=== PATIENT | female | born 1955 | race Caucasian/White ===

== ENCOUNTER 2023-07-09 13:22 | Emergency (ER) | payer MEDICARE, BC, SELFPAY ==
[2023-07-09] VITALS (8 sets, daily range): BP systolic 129–185; BP diastolic 70–117; BMI 25.4
[2023-07-09] MEDS: NITROSTAT (SUBLINGUAL) 0.400000000000000022 MG SL ×3 (14:02→14:15)
[2023-07-09 14:04] LABS: % Basophils 0.4 % (0-2); % Eosinophils 1.3 % (0-6); % Immature Granulocytes 0.6 % (0-0.5); % Lymphocytes 12.2 % (20.5-51.1); % Neutrophils 79.5 % (42.2-75.2); Absolute Basophils 0.1 10^3/uL (0-0.2); Absolute Eosinophils 0.2 10^3/uL (0-0.7); Absolute Immature Granulocytes 0.1 10^3/uL (0-0.05); Absolute Lymphocytes 1.5 10^3/uL (1.2-3.4); Absolute Monocytes 0.7 10^3/uL (0.1-0.6); Absolute Neutrophils 9.5 10^3/uL (1.4-6.5); Hemoglobin 12.5 g/dL (12.0-16.0); Mean Corp Hgb Conc. 34.7 g/dL (33.0-37.0); Mean Corpuscular Hgb 31.9 pg (27.0-31.0); Mean Corpuscular Volume 91.8 fL (81.0-99.0); Mean Platelet Volume 9.1 fL (7.4-10.4); Nucleated Red Blood Cells % 0 %; Platelet Count 191 10^3/uL (130-400); Red Blood Cell Count 3.92 10^6/uL (4.20-5.40)
[2023-07-09] MEDS: ASPIRIN 325 MG PO (14:12)
--- NOTE | 2023-07-09 14:12 | EDRN ---
Portable CXR done at this time.
--- NOTE | 2023-07-09 14:15 | EDRN ---
1 NTG administered at 14:08 w/ pain 6-09/18 and HR 90 and BP 161/86; NTG #2 administered at 14:08 w/ pain unchanged BP 141/92 and pulse 91; NTG #3 administered at this time 14:15 w/ BP 133/86 and pulse 89. Pain increases w/ inhalation states pt.
[2023-07-09 14:25] LABS: ALT (SGPT) 15 U/L (0-35); AST (SGOT) 25 U/L (14-36); Albumin 3.7 g/dl (3.5-5.0); Alkaline Phosphatase 71 U/L (38-126); Blood Urea Nitrogen 25 mg/dl (7-17); Calcium 8.9 mg/dl (8.4-10.2); Carbon Dioxide 29 mmol/L (22-30); Chloride 104 mmol/L (98-107); Estimated Creatinine Clearance 65 ml/min; Glucose 116 mg/dl (70-99); Potassium 4.4 mmol/L (3.5-5.1); Sodium 135 mmol/L (135-145); Total Bilirubin 0.5 mg/dl (0.2-1.3); Total Protein 6.7 g/dl (6.3-8.2); eGFR > 60.00
[2023-07-09 14:36] LABS: Troponin I < 0.012 ng/ml
--- NOTE | 2023-07-09 16:46 | EDRN ---
Pt frequently OOB to BR. Pt states pain remains 6-7/10 in substernal area. Repeat troponin drawn and sent at this time.
[2023-07-09 17:17] LABS: Troponin I < 0.012 ng/ml
--- NOTE | 2023-07-09 17:44 | EDRN ---
Dr Freitas in to see pt at this time.
--- NOTE | 2023-07-09 17:47 | ED.GENMED ---
History of Present Illness
General
Chief Complaint: Chest Pain
Source: patient
Exam Limitations: none
Time Seen by Provider: 07/09/23 13:45
Travel History
Have you had any contact with someone who has COVID-19?: No
Do you have any symptoms of coronavirus? Fever > 100 degrees, chills, cough, shortness of breath, sore throat, loss of taste or smell, muscle aches, or headache?: No
History of Present Illness
History of Present Illness:
This is a 68-year-old female history of coronary disease who presents with chest discomfort. She states it started yesterday and lasted most of the day but felt little better at night. Today the symptoms came on and been there all day. She states
that the pain has persisted all day. Feels a little short of breath. Feels like the pressure is a little worse when she takes a deep breath. Patient also admits that it is somewhat similar to her previous event. The patient states also that she
has not been taking any Plavix or aspirin. 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 Patient Is Also Not on Metoprolol. No Diaphoresis. No Radiation of Pain
Past History
Past History
ED Past Medical History: CAD, GERD, HTN, [place], Psychiatric (Bipolar, Depression), Other (Rheumatoid Arthritis, Sciatic pain, Pituitary disorder, Psoriasis, ADHD, PNA, Esophageal problems) and Other (History of pneumonia, pituitary disorder, psoriasis,
rheumatoid arthritis, thyroid disease.)
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
Social History
Tobacco: Former smoker
Alcohol: None
Personal: Single
Living: alone
Employment: Not employed
Phy Exam
Physical Exam
Physical Exam:
CONSTITUTIONAL Patient alert and oriented to person, place and time. Well-appearing. Vital signs reviewed.
HEAD atraumatic, normocephalic.
EYES eyelids normal to inspection, Pupils equally round and reactive to light, Extraocular muscles intact, Conjunctiva normal, Sclera normal.
NECK normal range of motion, Trachea midline, no jugular venous distention.
RESPIRATORY CHEST No respiratory distress noted, Chest expansion equal, Bilateral breath sounds clear.
CARDIOVASCULAR regular rate and rhythm, Heart sounds normal.
ABDOMEN abdomen nontender, Bowel sounds normal. No distention.
BACK normal inspection, no obvious deformities
UPPER EXTREMITY range of motion normal, Motor strength normal, no cyanosis, no edema.
LOWER EXTREMITY range of motion normal, Motor strength normal, no cyanosis, no edema.
NEURO Speech normal, No focal motor deficits, Reinier coma scale 15, Memory normal, Cranial Nerves intact to screening exam.
SKIN skin warm, dry, and normal in color.
PSYCHIATRIC patient oriented to person place and time, Normal affect.
Scores
Heart Score for Chest Pain Patients
STEMI patient?: No
History: Moderately Suspicious
ECG: Nonspecific Repolarization
Age: >/= 65 years
Risk Factors: >/= 3 Risk Factors or History of CAD
Troponin: </= Normal Limit
Heart Score for Chest Pain Patients: 6
Heart Score Risk: 20.3% MACE over next 6 weeks
Course
Orders/Labs/Results
Orders:
Orders
07/09/23 13:24
ECG [Electrocardiogram (*1)] Urgent
Reason for Study: Chest Pain
07/09/23 13:25
EKG- Treatment ONCE
07/09/23 13:46
Cardiac Monitoring- Treatment ONCE
07/09/23 13:52
Nitroglycerin Sublingual [Nitrostat (Sublingual)] 0.4 mg .ROUTE .STK-MED ONE
07/09/23 13:58
Complete Blood Count/With Diff Urgent
Comprehensive Metabolic Panel Urgent
Troponin I Urgent
07/09/23 13:59
Aspirin 325 mg PO NOW STA
07/09/23 14:00
Nitroglycerin Sublingual [Nitrostat (Sublingual)] 0.4 mg SL [id number] PRN
CR Chest Portable - 1 View Urgent
Comment:
Reason For Exam: cp
Reason Study Needs to be Portable: Patient Unstable
07/09/23 14:01
Electrocardiogram (*1) Urgent
Reason for Study: Chest Pain
EKG- Treatment ONCE
07/09/23 14:07
Vital Signs- Treatment ONCE
Frequency: Once
07/09/23 15:50
Electrocardiogram (*1) Urgent
Reason for Study: Chest Pain
EKG- Treatment ONCE
07/09/23 16:43
Troponin I Urgent
Abnormal Lab Results
07/09/23
13:58
WBC 12.0 H 10^3/uL
(4.8-10.8)
RBC 3.92 L 10^6/uL
(4.20-5.40)
Hct 36.0 L %
(37.0-47.0)
MCH 31.9 H pg
(27.0-31.0)
Abs Immat Gran (auto) 0.1 H 10^3/uL
(0-0.05)
Absolute Neuts (auto) 9.5 H 10^3/uL
(1.4-6.5)
Absolute Monos (auto) 0.7 H 10^3/uL
(0.1-0.6)
Immature Gran % 0.6 H %
(0-0.5)
Neutrophils % 79.5 H %
(42.2-75.2)
Lymphocytes % 12.2 L %
(20.5-51.1)
BUN 25 H mg/dl
(7-17)
Glucose 116 H mg/dl
(70-99)
07/09/23 13:58
07/09/23 13:58
Vital Signs
Initial and Last Documented VS:
Initial Vital Signs
Temp Pulse Resp BP Pulse Ox
98.4 F 95 18 185/117 98
07/09/23 13:29 07/09/23 13:29 07/09/23 13:29 07/09/23 13:29 07/09/23 13:29
Last Documented Vital Signs
Temp Pulse Resp BP Pulse Ox
98.4 F 90 23 138/82 96
07/09/23 13:29 07/09/23 17:15 07/09/23 17:15 07/09/23 17:00 07/09/23 17:15
MDM/Problems Addressed
MDM/Problems Addressed:
History of coronary disease, chest pain, abnormal EKG, uncontrolled hypertension
Acute Exacerbation and/or Progression of Chronic Illness: HTN
*Radiology
Radiology exam reviewed: all reviewed NAD by ED Provider
*Pulse Oximetry
Patient hypoxic: no
*EKG
Interpreted by ED Provider?: Yes
Interpretation: abnormal
Rate: normal
Rhythm: sinus
[place]: normal axis
Ischemia: non-specific ST changes
*Office Analyst Interpretation
Rate: normal
Interpretation: normal
Rhythm: sinus
*Critical Care Note
Total Time (30-74mins, 75-104mins- exclusive of procedures): Not Applicable
Data Reviewed
Review of Other/Old Records Reveals: Records (2021 cath report reviewed)
Source: patient
Prescriptions/Medications Considered But Not Given:
Consider heparin but troponin negative
Patient Management
Discussion with other providers: College Professor (Case discussed with Dr. Castellano)
Escalation/DeEscalation of care consider admission/obs:
Case discussed Dr. Castellano. Will restart aspirin 81 mg. On previous cardiac catheterization the patient did have LAD disease as well. She has elected not to take her aspirin but after discussion she will restart aspirin 81 mg. Will also start
Toprol 25 mg. She will follow-up closely with cardiology. Repeat troponin negative. Patient does appear well. Okay for discharge
ED Attending Note
-
Portions of this chart may have been created with voice recognition software.� Occasional wrong word or��sound alike� substitutions may have occurred due to the inherent limitations of voice recognition software.
Discharge Plan
Departure
Patient Disposition: Home (Routine Discharge)
Date of Disposition: 07/09/23
Time of Disposition: 17:52
Patient with high blood pressure during this ER visit?: Yes
Discharge Problem:
Chest pain
Instructions: Chest Pain DCA Follow Up, BLOOD PRESSURE
Prescriptions:
New
metoprolol succinate [Toprol XL] 25 mg tablet extended release 24 hr
25 mg PO DAILY Qty: 30 0RF
No Action
celecoxib 200 MG capsule
200 mg PO BID
levothyroxine 150 MCG tablet
150 mcg PO DAILY
famotidine 40 MG tablet
40 mg PO BID
atorvastatin 80 MG tablet
80 mg PO QPM Qty: 30 5RF
quetiapine 100 mg Tablet
100 mg PO HS
dextroamphetamine-amphetamine 15 mg Tablet
15 mg PO BID@0800,1200
alprazolam 2 mg Tablet
2 mg PO HS
albuterol sulfate 90 mcg/actuation Hfa Aerosol Inhaler
1 puff INHALATION R BIDPRN PRN (Reason: sob)
sertraline 50 mg Tablet
100 mg PO DAILY
mometasone 0.1 % Cream
1 applic TOPICAL BIDPRN PRN (Reason: forehead)
fluticasone furoate-vilanterol [Breo Ellipta] 200-25 mcg/dose Blister With Device
1 inh INHALATION R DAILY
Referrals:
Yamil Russo MD [Family Provider] -
Activity Restrictions/Additional Instructions:
Please take 81 mg aspirin daily. Please see cardiology next 3 days for follow-up and reevaluation. Return to the for shortness of breath, worsening pain, palpitations or any other concerns.
Interventions
Interventions:
*Risk Screen - Suicide Last Done: 07/09/23 13:32
*General Assessment Last Done: 07/09/23 13:32
*Neglect/Abuse Screening Last Done: 07/09/23 13:32
ED- Fall Risk Assessment Last Done: 07/09/23 14:09
ED- Cardiac Assessment Last Done: 07/09/23 14:09
ED- Pulmonary Assessment Last Done: 07/09/23 14:09
Discharge Date and Time
Print Language: CITIZEN OF [place]
== END 2023-07-09 18:15 | disposition home or self-care (01) ==
LOC: EMR 13:22
PROVIDERS: EMERGENCY PHYSICIAN Emergency Medicine; FAMILY PHYSICIAN Family Medicine
DX: R07.89 Other chest pain (principal); I10 Essential (primary) hypertension; I25.10 Atherosclerotic heart disease of native coronary artery without angina pectoris; Z87.891 Personal history of nicotine dependence
CPT/HCPCS: 99285; 71045; 80053; 84484; 85025; 93005

== ENCOUNTER → 2023-08-13 13:04 | Outpatient (REF) | payer MEDICARE, BC, SELFPAY | LOC: RCS 13:04 | PROVIDERS: ATTENDING PHYSICIAN Nuclear Medicine Nuclear Cardiology; FAMILY PHYSICIAN Family Medicine | DX: E78.2 Mixed hyperlipidemia (principal); I25.10 Atherosclerotic heart disease of native coronary artery without angina pectoris; I34.0 Nonrheumatic mitral (valve) insufficiency | CPT/HCPCS: 93306 ==

== ENCOUNTER 2024-08-23 14:55 | Emergency (ER) | payer MEDICARE, BC, SELFPAY ==
[2024-08-23 15:02] VITALS: BP 133/99
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
[2024-08-23 15:22] VITALS: BMI 27.7
[2024-08-23 15:47] LABS: % Basophils 1.2 % (0-2); % Immature Granulocytes 0.4 % (0-0.5); % Lymphocytes 21.3 % (20.5-51.1); % Monocytes 3.6 % (1.7-9.3); % Neutrophils 71.5 % (42.2-75.2); Absolute Basophils 0.1 10^3/uL (0-0.2); Absolute Eosinophils 0.2 10^3/uL (0-0.7); Absolute Lymphocytes 1.6 10^3/uL (1.2-3.4); Absolute Monocytes 0.3 10^3/uL (0.1-0.6); Absolute Neutrophils 5.4 10^3/uL (1.4-6.5); Hematocrit 44.6 % (37.0-47.0); Hemoglobin 15.2 g/dL (12.0-16.0); Mean Corp Hgb Conc. 34.1 g/dL (33.0-37.0); Mean Corpuscular Hgb 31.4 pg (27.0-31.0); Mean Corpuscular Volume 92.1 fL (81.0-99.0); Mean Platelet Volume 9.4 fL (7.4-10.4); Nucleated Red Blood Cells % 0 %; Platelet Count 242 10^3/uL (130-400); Red Blood Cell Count 4.84 10^6/uL (4.20-5.40); Red Cell Dist. Width 13.8 % (11.5-14.5); White Blood Cell Count 7.5 10^3/uL (4.8-10.8)
[2024-08-23 16:05] LABS: ALT (SGPT) 16 U/L (0-35); AST (SGOT) 26 U/L (14-36); Acetaminophen < 10 ug/ml (10-30); Albumin 4.3 g/dl (3.5-5.0); Alkaline Phosphatase 70 U/L (38-126); Blood Urea Nitrogen 29 mg/dl (7-17); Calcium 9.6 mg/dl (8.4-10.2); Carbon Dioxide 26 mmol/L (22-30); Chloride 106 mmol/L (98-107); Estimated Creatinine Clearance 35 ml/min; Glucose 124 mg/dl (70-99); Potassium 4.5 mmol/L (3.5-5.1); Salicylate < 1.0 mg/dl (2.0-20.0); Sodium 139 mmol/L (135-145); Total Bilirubin 0.6 mg/dl (0.2-1.3); Total Protein 7.6 g/dl (6.3-8.2); eGFR 40.22
[2024-08-23 16:06] LABS: Alcohol None Detected
[2024-08-23 16:35] LABS: Amphetamines Positive (Negative); Barbiturates Negative (Negative)
[2024-08-23 16:36] LABS: Benzodiazepines Positive (Negative); Buprenorphine Negative (Negative); Cocaine Negative (Negative); Marijuana Positive (Negative); Methadone Negative (Negative); Methamphetamines Negative (Negative); Opiates Negative (Negative); Phencyclidine Negative (Negative); Tricyclic Antidepressants Positive (Negative)
[2024-08-23 16:57] LABS: Fentanyl, Urine Negative (Negative)
[2024-08-23] MEDS: PROTONIX 40 MG PO (17:33)
[2024-08-23] MEDS: PEPCID 40 MG PO (17:33)
[2024-08-23] MEDS: TYLENOL 650 MG PO (19:40)
[2024-08-23] MEDS: XANAX 1 MG PO (21:20)
[2024-08-23] MEDS: SEROQUEL 100 MG PO (21:20)
[2024-08-23 21:35] VITALS: BP 130/89
[2024-08-23 21:51] LABS: COVID-19 Antigen Negative (Negative)
[2024-08-24] MEDS: PROTONIX 40 MG PO (10:24)
[2024-08-24] MEDS: PEPCID 40 MG PO (10:25)
[2024-08-24 10:30] VITALS: BP 150/95
--- NOTE | 2024-08-24 10:40 | EDRN ---
Report given to [facility] staff.
[2024-08-24 11:06] VITALS: BP 150/95
== END 2024-08-24 10:40 ==
LOC: EMR 14:55
PROVIDERS: Student in an Organized Health Care Education/Training Program; EMERGENCY PHYSICIAN Emergency Medicine; FAMILY PHYSICIAN Family Medicine
DX: R45.851 Suicidal ideations (principal); F41.9 Anxiety disorder, unspecified; Z11.52 Encounter for screening for COVID-19; I10 Essential (primary) hypertension; I25.10 Atherosclerotic heart disease of native coronary artery without angina pectoris; F31.9 Bipolar disorder, unspecified; N28.9 Disorder of kidney and ureter, unspecified; K21.9 Gastro-esophageal reflux disease without esophagitis; M06.9 Rheumatoid arthritis, unspecified; L40.9 Psoriasis, unspecified; F32.A Depression, unspecified; F12.90 Cannabis use, unspecified, uncomplicated; I25.2 Old myocardial infarction; Z87.01 Personal history of pneumonia (recurrent); Z95.5 Presence of coronary angioplasty implant and graft; Z87.891 Personal history of nicotine dependence; Z86.018 Personal history of other benign neoplasm; F90.9 Attention-deficit hyperactivity disorder, unspecified type; E07.9 Disorder of thyroid, unspecified; Z79.899 Other long term (current) drug therapy; Z88.6 Allergy status to analgesic agent; Z91.048 Other nonmedicinal substance allergy status; Z88.5 Allergy status to narcotic agent; Z88.0 Allergy status to penicillin
CPT/HCPCS: 99285; 80053; 80143; 80179; 80306; 80307; 82077; 85025; 87811